=== PATIENT | male | born 1960 | race Caucasian/White ===

== ENCOUNTER 2018-08-08 10:26 | Outpatient (REF) | payer BC, SELFPAY ==
[2018-08-08 21:09] LABS: BUN 22 mg/dL (7-18); Calcium 9.2 mg/dL (8.5-10.1); Chloride 101 mmol/L (98-107); Glucose 102 mg/dL (70-100); Potassium 3.7 mmol/L (3.5-5.1); Sodium 138 mmol/L (136-145)
== END 2018-08-08 10:46 ==
LOC: NCHCN 10:26
PROVIDERS: PCP Physician Assistant; Visit Provider Physician Assistant Medical
DX: I10 Essential (primary) hypertension (principal)
CPT/HCPCS: 80048

== ENCOUNTER 2019-10-01 10:31 | Outpatient (REF) | payer BC, SELFPAY ==
[2019-10-01 19:52] LABS: Abs Immature Grans 0.01 k/cumm (0.0-0.09); Absolute Basophil Count 0.01 k/cumm (0.0-0.2); Absolute Eosinophil Count 0.08 k/cumm (0.0-0.7); Absolute Lymphocyte Count 1.87 k/cumm (1.2-3.4); Absolute Monocyte Count 0.57 k/cumm (0.11-0.7); Absolute Neutrophil Count 4.46 k/cumm (1.2-6.7); Basophils % 0.1; Eosinophils % 1.1; HCT 46.2 % (40.0-50.0); HGB 16.2 g/dL (13.5-17.5); Immature Grans % 0.1 %; Lymphocytes % 26.7; Mean Corp. HGB Concentration 35.1 g/dL (32.0-36.0); Mean Corpuscular Hemoglobin 31.8 pg (27.0-33.0); Mean Corpuscular Volume 90.6 fL (80-95); Mean Platelet Volume 10.6 fL (8.0-11.0); Monocytes % 8.1; Neutrophils % 63.9; Platelet Count 240 x1000/uL (130-400); RBC Distribution Width 13.7 % (11.8-14.1)
[2019-10-01 20:17] LABS: ALT 56 U/L (16-63); AST 31 U/L (15-37); Alkaline Phosphatase 80 U/L (46-116); Anion Gap 8.2 mmol/L (3-11); BUN 15 mg/dL (7-18); Bilirubin, Total 0.7 mg/dL (0.2-1.0); CO2 28.8 mmol/L (21.0-32.0); CREATININE 1.03 mg/dL (0.70-1.30); Calcium 8.9 mg/dL (8.5-10.1); Calculated LDL 120 mg/dL (<100); Chloride 104 mmol/L (98-107); Cholesterol 191 mg/dL (<200); Glucose 105 mg/dL (74-106); HDL Cholesterol 53 mg/dL (40-60); Potassium 4.5 mmol/L (3.5-5.1); Sodium 141 mmol/L (136-145); Total Protein 7.2 g/dL (6.4-8.2); Triglyceride 91 mg/dL (<150)
== END 2019-10-01 10:51 ==
LOC: NCHCN 10:31
PROVIDERS: PCP Physician Assistant; Visit Provider Physician Assistant
DX: Z00.00 Encounter for general adult medical examination without abnormal findings (principal); E78.5 Hyperlipidemia, unspecified; I10 Essential (primary) hypertension
CPT/HCPCS: 80053; 80061; 85025

== ENCOUNTER 2022-07-11 10:32 | Outpatient (CLI) | payer BC, SELFPAY ==
--- NOTE | 2022-07-11 09:30 | DI.RAD_ITS ---
Exam(s) XR HIP RT COMPLETE AP PELVIS EXAM: XR HIP RT COMPLETE AP PELVIS INDICATION: right hip pain. COMPARISON: No exams were available for comparison TECHNIQUE: 2D digital imaging was performed. Three views. FINDINGS: Severe narrowing of the right hip joint space with a [id number] appearance. Periarticular spurring and sclerosis. Mild degenerative changes noted in the left hip. SI joints and pubic symphysis unre markable. IMPRESSION: Advanced degenerative changes right hip. DATA REPOSITORY: RADIATION DOSE DELIVERED:
== END 2022-07-11 10:33 | disposition home or self-care (01) ==
LOC: DIORS 10:35
PROVIDERS: PCP Physician Assistant; Referring Provider Physician Assistant; Visit Provider Student in an Organized Health Care Education/Training Program
DX: M25.551 Pain in right hip (principal); M16.11 Unilateral primary osteoarthritis, right hip
CPT/HCPCS: 73502

== ENCOUNTER 2022-07-11 13:21 | Outpatient (CLI) | payer BC, SELFPAY ==
[2022-07-11 10:40] LABS: HCT 47.2 % (40.0-50.0); HGB 16.8 g/dL (13.5-17.5); MCH 31.9 pg (27.0-33.0); MCHC 35.6 % (32.0-36.0); MCV 90 fL (80-95); MPV 10.2 fL (8.0-11.0); Platelet Count 231 10^3/uL (130-400); RBC 5.27 10^6/uL (4.36-5.78); RDW 12.6 % (11.8-14.1); RDW-SD 41.6 fL; WBC 7.47 10^3/uL (4.4-10.8)
[2022-07-11 11:30] LABS: Anion Gap 9.6 mmol/L (3-11); BUN 17 mg/dL (7-18); CO2 27.4 mmol/L (21.0-32.0); Calcium 9.1 mg/dL (8.5-10.1); Chloride 103 mmol/L (98-107); Estimated GFR 85.63 (mL/min/1.73m2); Glucose 119 mg/dL (74-106); Potassium 3.9 mmol/L (3.5-5.1); Sodium 140 mmol/L (136-145)
== END 2022-07-11 13:22 | disposition home or self-care (01) ==
LOC: LBO 13:21
PROVIDERS: PCP Physician Assistant; Visit Provider Student in an Organized Health Care Education/Training Program
DX: M25.551 Pain in right hip (principal); M16.11 Unilateral primary osteoarthritis, right hip; Z01.818 Encounter for other preprocedural examination; Z01.812 Encounter for preprocedural laboratory examination
CPT/HCPCS: 36415; 80048; 85027

== ENCOUNTER 2022-07-19 05:55 | Day surgery (SDC) | payer BC, SELFPAY ==
[2022-07-19 06:33] VITALS: BP 132/96; PULSE 57; RESP 18; TEMP 36.5; O2SAT 98
[2022-07-19] MEDS: Celecoxib 200 MG CAP 400 MG PO (06:42)
[2022-07-19] MEDS: Acetaminophen 500 MG TAB 1000 MG PO (06:42)
[2022-07-19] MEDS: Lactated Ringers 1,000 ML 80 ML IV (07:00)
--- NOTE | 2022-07-19 07:08 | W.ANESPRE ---
General Info Date of Service Date Performed: 07/19/22 Height: 5 ft 9 in Weight: 96.6 kg Body Mass Index (BMI): 31.4 Surgical Procedure: Operation Date: 07/19/22 07:50 Proposed Procedure Side Surgeon p Hip Total Hip Anterior, ACTIS (09/21 High) Right Edgar Nicholson MD Pre-Op Diagnosis Post-Op Diagnosis Arthritis of right hip Meds Allergies and Home Medications Allergies Allergy/AdvReac Type Severity Reaction Status Date / Time No Known Allergies Allergy Verified 07/19/22 06:28 Home Medication Medication Instructions Recorded hydrochlorothiazide 12.5 mg capsule 12.5 mg PO HS 07/11/22 metoprolol succinate 50 mg 50 mg PO HS 07/11/22 tablet,extended release 24 hr multivitamin 1 tab PO DAILY 07/11/22 simvastatin 20 mg tablet 20 mg PO HS 07/11/22 acetaminophen 500 mg tablet 1,000 mg PO Q8H PRN pain #90 tabs 07/19/22 aspirin 81 mg tablet,delayed 81 mg PO BID 30 days #60 tabs 07/19/22 release celecoxib 200 mg capsule (Celebrex) 200 mg PO BID PRN #60 caps 07/19/22 dexamethasone 4 mg tablet 4 mg PO DAILY #2 tabs 07/19/22 docusate sodium 100 mg capsule 100 mg PO BID #30 caps 07/19/22 (Colace) oxycodone 5 mg tablet 5 mg PO Q6H PRN #12 tabs 07/19/22 pantoprazole 40 mg tablet,delayed 40 mg PO DAILY #14 tabs 07/19/22 release Current Visit Medications: Current Medications Generic Name Dose Route Start Last Admin Trade Name Yasmaniq PRN Reason Stop Dose Admin Acetaminophen 1,000 mg 07/19/22 06:00 07/19/22 06:42 Acetaminophen 500 Mg Tab PO 07/19/22 18:00 1,000 mg PREOP ZULEYKA Administration Celecoxib 400 mg 07/19/22 06:00 07/19/22 06:42 Celecoxib 200 Mg Cap PO 07/19/22 18:00 400 mg PREOP ZULEYKA Administration Tranexamic Acid 1,000 mg/ 60 mls @ 360 mls/hr 07/19/22 06:00 Sodium Chloride IV 07/19/22 18:00 PREOP ZULEYKA Ringer's Solution 1,000 mls @ 80 mls/hr 07/19/22 06:00 IV 08/17/22 23:59 INFUSION ZULEYKA Cefazolin Sodium/Dextrose 2 gm in 50 mls @ 100 mls/hr 07/19/22 06:00 Ancef Duplex IVPB 07/19/22 16:00 PREOP ZULEYKA IV Miscellaneous Supplies 1 each 07/19/22 06:00 Iv Access IV 08/17/22 23:59 DIRECTED ZULEYKA Sodium Chloride 0 ml 07/19/22 06:00 Normal Saline Flush 10 Ml Syr IV 08/17/22 23:59 PRN PRN Sodium Chloride 0 ml 07/19/22 06:00 Normal Saline 10 Ml Vial IJ 08/17/22 23:59 DIRECTED PRN Sterile Water 0 ml 07/19/22 06:00 Water,Injection,Sterile 10 Ml Vial IJ 08/17/22 23:59 DIRECTED PRN PFSH Active Problems Active Problems: Problem Status Onset Code Intermittent palpitations R00.2 Hyperlipidemia E78.5 Hypertension I10 Arthritis of right hip M16.11 Femoroacetabular impingement of left hip M25.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 Medical History Medical History (Updated 07/19/22 @ 06:33 by Savana Matthews) Hx of acute arthritis r hip Hx of essential hypertension Hx of hyperlipidemia Medical History Comments:: pt has had a colonoscopy Surgical History Surgical History (Updated 07/19/22 @ 06:31 by Savana Matthews) Hx of colonoscopy Tobacco Smoking/Tobacco Use Status: Former Tobacco Use Alcohol Alcohol Intake: current Alcohol intake frequency: 0-2 drinks per day Alcohol type: beer Substance Use Substance use: Never Substance use type: does not use Details: alcohol: t-1, couple beers Vital Signs and Lab Results Vital Signs Most Recent Vital Signs in EMR: Most Recent Vital Signs Temp Pulse Resp BP Pulse Ox 36.5 C 57 L 18 132/96 H 98 07/19/22 06:33 07/19/22 06:33 07/19/22 06:33 07/19/22 06:33 07/19/22 06:33 Lab Results Blood Type / Crossmatch: No Data to Display Complete Blood Count: White Blood Count 7.47 10^3/uL (4.4-10.8) 07/11/22 10:34 Red Blood Count 5.27 10^6/uL (4.36-5.78) 07/11/22 10:34 Hemoglobin 16.8 g/dL (13.5-17.5) 07/11/22 10:34 Hematocrit 47.2 % (40.0-50.0) 07/11/22 10:34 Platelet Count 231 10^3/uL (130-400) 07/11/22 10:34 Complete Metabolic Panel: Sodium 140 mmol/L (136-145) 07/11/22 10:34 Potassium 3.9 mmol/L (3.5-5.1) 07/11/22 10:34 Chloride 103 mmol/L (98-107) 07/11/22 10:34 Carbon Dioxide 27.4 mmol/L (21.0-32.0) 07/11/22 10:34 BUN 17 mg/dL (7-18) 07/11/22 10:34 Creatinine 1.0 mg/dL (0.70-1.30) 07/11/22 10:34 Est GFR (CKD-EPI 2020) 85.63 (mL/min/1.73m2) 07/11/22 10:34 Calcium 9.1 mg/dL (8.5-10.1) 07/11/22 10:34 Glucose 119 mg/dL (74-106) H 07/11/22 10:34 Liver Function Panel: No Data to Display Coagulation Panel: No Data to Display Cardiac Panel: No Data to Display Arterial Blood Gas: No Data to Display Venous Blood Gas: No Data to Display Pancreas Panel: No Data to Display Thyroid Panel: No Data to Display Infectious Disease: No Data to Display Blood Cultures: No Data to Display Toxicology Panel: No Data to Display Anesthesia Assessment and Plan Anesthesia History Personal History: No History of General Anesthesia Family History: No Family History of Anesthesia Complications Exercise Tolerance Exercise Tolerance: Metabolic Equivalents>4 Pertinent Negatives Pertinent Negatives: No Symptoms of GERD, No Major Cardiovascular Symptoms or Complaints, No Major Pulmonary Symptoms or Complaints and No History of CVA/TIA Cardiac & Pulmonary Exam Cardiac Exam: Normal S1/S2 Heart Sounds Pulmonary Exam: Clear Bilateral Breath Sounds Implantable Cardiac Device Does patient have a Pacemaker or an ICD?: No Airway Exam Known Difficult Airway: No Mallampati Class: 2 Mouth Opening: Normal (> 3cm) Thyromental Distance: Greater than 3 cm Facial Hair: Full Moore Neck Range of Motion: Full ROM Neck Circumference: Normal Teeth Condition: Normal Dentition ASA Classification ASA Score: ASA 2 Emergency Case?: No NPO Status NPO Status: NPO Clears >2 hours, Solids >8 hours Anesthesia Plan Resuscitation Status: Full Code Anesthesia Technique: Spinal Anesthesia Airway Planned: Natural Airway Monitors Used: Standard Monitors
[2022-07-19 07:10] VITALS: BMI 31.4
--- NOTE | 2022-07-19 07:11 | DSE_ITS ---
Date of service: 07/19/22 Time of Service: 07:20 DS: Diagnosis Discharge Diagnosis (1) Arthritis of right hip: Status: Acute Discharge Plan Disposition Patient Disposition: Home Condition: Good Discharge Details Reason For Visit: Right hip DJD Attending Provider: Edgar Nicholson Primary Care Provider: Codi Manley Home Meds and New Rx's Prescriptions: New acetaminophen 500 mg tablet 1,000 mg PO Q8H PRN Qty: 90 0RF Rx Instructions: Take two tablets up to every 8 hours as needed for pain aspirin 81 mg tablet,delayed release (DR/EC) 81 mg PO BID 30 Days Qty: 60 0RF celecoxib [Celebrex] 200 mg capsule 200 mg PO BID PRNQty: 60 0RF Rx Instructions: Take one tablet twice daily for pain and inflammation docusate sodium [Colace] 100 mg capsule 100 mg PO BID Qty: 30 0RF dexamethasone 4 mg tablet 4 mg PO DAILY Qty: 2 0RF Rx Instructions: Take one tablet once daily for two days oxycodone 5 mg tablet 5 mg PO Q6H PRNQty: 12 0RF Rx Instructions: Take one tablet up to every 6 hours as needed for severe postoperative pain pantoprazole 40 mg tablet,delayed release (DR/EC) 40 mg PO DAILY Qty: 14 0RF Continued simvastatin 20 mg tablet 20 mg PO HS multivitamin Tablet 1 tab PO DAILY metoprolol succinate 50 mg tablet extended release 24 hr 50 mg PO HS hydrochlorothiazide 12.5 mg capsule 12.5 mg PO HS Discontinued aspirin 325 mg tablet 325 mg PO DAILY Discharge Instructions Additional Instructions: Total Hip Discharge Instructions Activity: The most important activity is to walk. You should try to take short walks a few times a day. You have no restrictions on movement or positioning, but do not try to force what you do. You will find some stiffness and weakness with hip flexion (lifting your knee). Do not try to strengthen this too early, continue to practice walking and stairs and this will come. - Outpatient physical therapy can be helpful to help return you to a normal gait and improve your flexibility and strength. This can start around 2 weeks. For some patients, it?s not necessary. Usually this is determined at the time of discharge or at the first post-operative visit. - You should wear the MACHO hose on both legs for 2 weeks. Dressing: Keep the surgical dressing in place for at least one week. After the first week it may be removed and replace with light gauze and tape or nothing. It may get wet after 3 days but avoid soaking the dressing. If it gets wet, just lightly pat dry. It is important to always keep some gauze between skin folds, especially when you are sitting. Spend some time with the wound exposed when you are lying flat as the incision does wrinkle onto itself. Medications: - You should take Tylenol and an anti-inflammatory Celebrex as your primary pain control medications. If the Celebrex is too expensive or not covered, please call the office for another alternative (Advil/Ibuprofen or Naproxen/Aleve). - You have been prescribed a stronger pain medication Oxycodone for breakthrough pain, take as needed as prescribed. - You have also been prescribed a stomach acid reduction agent Pantoprozole to help reduce stomach acid and reflux. - You have also been prescribed Decadron to help with post-operative nausea and pain. You will take this for two days starting tomorrow. - You will be taking Aspirin 81mg twice a day for DVT prevention unless instructed otherwise. - If you have constipation you should take Colace (which has been prescribed) or Miralax (which has been prescribed [id number]). It takes most people 3-4 days to have a bowel movement. Follow-up: 2 weeks If you have any acute concerns or questions, please do not hesitate to contact the office at [phone]. You may contact Dr. Nicholson with any questions after hours through the hospital at [phone] or on his cell phone at [phone]. Referrals: Edgar Nicholson MD [ [facility] STAFF PHYSICIAN] - Equipment/Supplies: Walker Activity:: Elevate Remove Dressings/Wound Care:: Do Not Remove Shower/Bathe:: Cover Diet:: As Tolerated Discharge Orders Discharge Orders: Discharge Order (Routine); Ordered 07/19/22 Ordered By: Edgar Nicholson DS: Summary Time Spent with Patient providing and/or coordinating discharge services: Less than 30 minutes Status at Discharge Functional status at discharge: uses cane/walker Overall status at discharge: patient is progressing back to baseline Mental Status: mental status grossly normal Speech and Movement: speech and movement normal Mood: congruent mood Affect: normal affect Exam Psych Mental Status: mental status grossly normal Speech and Movement: speech and movement normal Mood: congruent mood Affect: normal affect DS: Data Vitals/I&O Vitals and I&O: Vital Signs Temperature 97.7 F 07/19/22 06:33 Pulse 57 L 07/19/22 06:33 Pulse Rhythm Regular 07/19/22 06:33 Respiratory Rate 18 07/19/22 06:33 Respiratory Depth Normal 07/19/22 06:33 Blood Pressure 132/96 H 07/19/22 06:33 Pulse Oximetry 98 07/19/22 06:33 Oxygen Delivery Method Room Air 07/19/22 06:33 Oxygen Flow Rate 0 07/19/22 06:33 Pain Level 2 07/19/22 06:33 Intake & Output 07/18/22 07/18/22 07/19/22 11:59 23:59 11:59 Weight 210 lb 212 lb 15.465 oz PFSH All Active Problems (Updated 07/19/22 @ 06:33 by Savana Matthews) Intermittent palpitations (Acute) Hyperlipidemia (Acute) Hypertension (Chronic) Arthritis of right hip (Acute) Femoroacetabular impingement of left hip (Acute) Medical History (Updated 07/19/22 @ 06:33 by Savana Matthews) Hx of acute arthritis r hip Hx of essential hypertension Hx of hyperlipidemia Surgical History (Updated 07/19/22 @ 06:31 by Savana Matthews) Hx of colonoscopy Social History Smoking/Tobacco Use Status: Former Tobacco Use Quit Date: 04/17/12 Smoking risk assessment performed?: Yes Alcohol Intake: current Alcohol Intake frequency: 0-2 drinks per day Alcohol type: beer Drug use: Never Substance use type: does not use Details: alcohol: t-1, couple beers Do you feel safe at home: Yes Do you feel safe in your relationship?: Yes Additional Social history: unable to assess privately Time Spent with Patient Time Spent with Patient: <45 minutes Time was spent: obtaining and/or reviewing separately otained hiistory, ordering medications,tests, procedures and counseling the patient
[2022-07-19] MEDS: ceFAZolin 2 GM/50 ML BAG IVPB (07:34)
--- NOTE | 2022-07-19 08:42 | DI.RAD_ITS ---
Exam(s) XR HIP RT IN OR EXAM: XR HIP RT IN OR CLINICAL HISTORY: Arthritis of right hip. TECHNIQUE: 2D and realtime digital imaging was performed. COMPARISON: CR XR HIP RT COMPLETE AP PELVIS from 07/11/2022 FINDINGS: Images show placement of a right hip prosthesis. The alignment appears satisfactory. Please see procedure note for details. Fluoro time: 41.2seconds RADIATION DOSE DELIVERED: Ka,r=6.36 mGy
[2022-07-19 09:10] VITALS: BP 114/78; PULSE 53; RESP 16; TEMP 36.3; O2SAT 97
[2022-07-19 09:50] VITALS: BP 147/91; PULSE 55; RESP 16; TEMP 36.4; O2SAT 99
[2022-07-19 10:22] VITALS: BP 130/83; PULSE 67; RESP 16; TEMP 36.6; O2SAT 98
[2022-07-19 11:16] VITALS: BP 132/94; PULSE 64; RESP 18; TEMP 36.2; O2SAT 99
--- NOTE | 2022-07-19 11:23 | W.ANESPOSTOP ---
Postoperative Evaluation Date, Time and Location Date Performed: 07/19/22 Time Performed: 10:18 Patient Location: Day Surgery Unit Vital Signs Most Recent Imported Vital Signs: Most Recent Vital Signs Temp Pulse Resp BP Pulse Ox 36.6 C 67 16 130/83 98 07/19/22 10:22 07/19/22 10:22 07/19/22 10:22 07/19/22 10:22 07/19/22 10:22 Pain Score Most Recent Pain Score: Most Recent Pain Score Pain Level 5 07/19/22 10:22 Assessment Mental Status: Awake (Alert & Oriented to Patient Baseline) Airway and Respiratory Function: Patent airway with normal (patient baseline) respiratory exam Cardiovascular Function: Hemodynamically Stable Hydration Status: Adequately Hydrated Nausea & Vomiting: No Nausea or Vomiting Pain: Pain is tolerable per patient Peripheral Nerve Block: Patient did not receive a nerve block
--- NOTE | 2022-07-19 16:31 | W.PM.OP ---
Date of service: 07/19/22 Time of Service: 08:50 Operative Note Operative Note DATE OF PROCEDURE: 07/19/22 PRE-OP DIAGNOSIS: Right Hip Osteoarthritis POST-OP DIAGNOSIS: same PROCEDURE: Right Anterior Total Hip Arthroplasty with Intraoperative Navigation SURGEON: Edgar Nicholson CLOTH BOIL OFF MACHINE OPERATOR: uJly Kim ANESTHESIA TYPE: Spinal Refer to Anesthesia Record ESTIMATED BLOOD LOSS: 100 PATHOLOGY: none sent TOURNIQUET TIME: 0 COMPLICATIONS: None Patient was transported to: PACU Patient's condition: stable Implants: 1. Depuy [place] Acetabular Component, 58mm 2. Depuy Acetabular Liner, 14m39mn 3. Depuy Actis Standard Collared Femoral Stem, Size 6 4. Depuy Altrx Ceramic Femoral Head, Size 36+8.5mm Indications: I have seen Vasyl in clinic for symptoms of hip arthritis, confirmed with radiographic findings. He has exhausted nonoperative methods and was having significant limitations in daily function and desired better function and less pain. I discussed the technical details of a hip replacement. I explained the risks of the procedure to include, but not limited to, bleeding, infection, pain, stiffness, fracture, damage to nerves and vessels, damage to muscles and tendons, loosening, instability, leg length inequality, need for repeat procedure, blood clot and cardiopulmonary demise. Despite these risks, Vasyl elected to proceed. Findings: There was significant signs of arthritis throughout the hip with synovitis throughout. Procedure Description: Vasyl was greeted in the preoperative holding area where the correct side was identified and marked. The consent was reviewed with the patient and signed. The history and physical was updated. All questions were answered. He was taken back to the operating room. A spinal anesthestic was then administered. The feet were wrapped with cast padding and Coban and then placed into the boot liners and then into the boots. Care was taken to protect the skin and make sure the heels were fully down and the boots were stable. The patient was then positioned onto the HANA table. Both legs were held in a neutral position. SCDs were applied. The patient was then slid down onto a peroneal post. Prophylactic antibiotics in the form of Cefazolin were administered. 1g of Tranxemic Acid was given intravenously within 30 minutes of incision. The right leg was then prepped with Chloraprep and draped in a standard fashion. A second prep with Chloraprep was performed prior to placement of a shower-curtain type drape with Iodine impregnated skin protection. A timeout to confirm correct identity, side and site, procedure, allergies, anesthesia, and medical concerns was performed. An obliquely oriented incision was made starting lateral to the ASIS and running distal over the Tensor Fascia Fawn (TFL) muscle belly toward the fibular head, approximately 10cm. The skin and soft tissue was dissected sharply, through Neil?s fascia, and to the fascia of the TFL. With the fascia and superior border of the IT band identified, the fascia was incised with a new knife just above any perforators from the IT band. The TFL muscle belly was bluntly dissected away from the fascia and moved laterally. The fat between TFL and rectus was identified to ensure the dissection was not within the TFL. Blunt dissection created space between abductors and the capsule and retractor was placed over the lateral femoral neck. The fibers of the rectus femoris tendon were identified and these were freed from the anterior capsule. A second cobra retractor was placed around the medial femoral neck. The TFL was further retracted laterally to show the deep fascia. Careful dissection through this layer identified three main crossing vessels of the lateral femoral circumflex. These were cauterized in multiple locations and then cut without any noticeable bleeding. The TFL was further released bluntly from the deep fascia to expose anterior hip capsule and fat The Nicko orthopaedic retractor was then placed beneath the TFL and against sartorius and medial soft tissues to protect and retract the soft tissues. A T-capsulotomy was then performed starting at the superior lateral acetabulum and moving distally to the intertrochanteric ridge. These capsular flaps were tagged with a No. 1 Ethibond and elevated from within. The capsular flaps were released to the shoulder of the lateral neck and to the lesser trochanter to give excellent visualization of the proximal femur. A neck osteotomy was performed using an oscillating saw based on preoperative templates. This cut started in the shoulder and of the lateral neck and exited medially. The saw was at all times directed medially to avoid injury to the greater trochanter. Gross traction was applied to the leg and the osteotomy opened. The femoral head was removed with a corkscrew, making sure to protect the TFL on its exit. Traction was released after head removal. This was measured on the back table to determine the starting reamer size. Portions of the rectus obscuring visualization were minimally elevated off the superior acetabulum. An anterior retractor was placed over the anterior wall between capsule and labrum and attached to the Gripper retraction system. The femur was rotated to 90 degrees and medial capsule was fully released until the lesser trochanter was palpable and visible; the femur was returned to 30 degrees. A posterior retractor was placed similarly between capsule and labrum. This provided excellent visualization. The contents of the cotyloid fossa were removed with electrocautery and the labrum was removed with a knife. There was a notable floor osteophyte. There was significant chondromalacia of the superior acetabulum. Synovitis was seen throughout the hip which was excised with a rongeur and sharply. Acetabular reaming began with a 54mm reamer. This first reaming was directed anterior to posterior and medial to get down to the true floor. This was inspected and reamed until the true floor was reached. The anterior retractor was then released and entry and exit was provided by traction on the capsular flaps. I then reamed sequentially up to a 58mm reamer where good fit was obtained. The larger reamers were oriented based on anatomical reference of the anterior and lateral conte to ensure proper abduction and anteversion. Positioning and size was confirmed with the fluoroscopy. A 58mm Depuy [place] acetabular component was selected. The acetabulum was reamed around the periphery with the selected acetabular size to prevent a rim fit. The deep tissues were irrigated. The acetabular component was then impacted in a position of about 40-45 degrees of abduction and 15-20 degrees of anteversion, using the patient?s anatomy as the ultimate landmark. Fluoroscopy was used to confirm this. There was excellent financial reporting consultant of the acetabular component and the inserting handle was removed. The acetabular liner, Depuy [id number] polyethylene liner, was inserted and lined up with the tines of the acetabular component. There was no soft tissue interposition. The liner was then impacted into position and confirmed to be well-seated. A portion of the dayana-articular cocktail was then injected around the acetabulum into the capsule and periosteum. This cocktail consisted of 123mg of Ropivacaine, 0.25mg of Epinephrine, 0.04mg of Clonidine, and 15mg of Ketorolac, diluted to 50cc. The leg was rotated to 120 degrees. Any remaining medial capsule was released until the lesser trochanter was easily palpable. A retractor was placed medially. The lateral capsule was further released into the shoulder to allow access to the greater trochanter. A Lan retractor was placed over the greater trochanter which allowed the trochanter to flip in front of the capsule for excellent exposure. The leg was brought down into maximal extension and 20 degrees of adduction while ensuring there was no impingement on the acetabulum. Any remnant capsule within the trochanter was released. Piriformis and obturator externis were identified and protected. There was excellent access to the proximal femur. The lateral neck remnant was removed with a rongeur. A blunt canal probe was used to identify the canal and trajectory for later broaching. A box osteotome initiated the broach course. A small curved rasp and a curved curette were used to work laterally. Broaching then began with a starter Actis broach. This was inserted manually around the trochanter and into the canal before mallet blows. The broach was seated to a few millimeters below the cut level based on the neck cut and the preoperative template. Sequential broaching was continued with the Carbonitese pneumatic broaching device until a tight fit was obtained with good rotational control of the femur. A trial high offset neck was inserted along with a +1.5 trial head. The leg was brought out of extension and adduction and then reduced with traction and internal rotation. The leg was stable anteriorly in a position of 30 degrees of extension and 90 degrees of external rotation. Fluoroscopy was used to ensure there was no fracture and the stem was seated well. Leg lengths were checked with an AP pelvis and pelvic reference points. Filement navigation system was used to confirm appropriate positioning and leg length and offset. This slightly over-corrected the offset and undercorrected the leg length. Thus, going to a standard neck with a +8.5mm head and advancing the stem 3mm would be more accurate. Once content with the desired offset and leg lengths, the leg was brought back into extension, external rotation and adduction. The periosteum and surrounding tissue was injected with remaining portion of the dayana-articular cocktail. The proximal femur was irrigated as well as the deep tissues. The kingskyuy TakeLessonsis standard collared stem, size 6, was then manually inserted into the proximal femur making sure to control rotation. It was then malleted into position with light blows, giving breaks to allow bone expansion and decrease risk of fracture. The selected Depuy Altrx Ceramic Head, size 36+8.5mm, was then placed onto the clean and dry trunnion and secured with impaction onto the tapered fit. The leg was brought back out of extension and adduction and reduced with traction and internal rotation. Stability was confirmed with no shuck at 90 degrees of external rotation and 30 degrees of extension. No impingement through range of motion arc. Final x-ray images were obtained with fluoroscopy to confirm adequate positioning and no intraoperative fracture. The deep tissues were thoroughly irrigated with Surgiphor, betadine solution. This was allowed to sit in the wound for 3 minutes before being thoroughly irrigated out with normal saline. The capsule was then reapproximated with the previously placed Ethibond sutures. The TFL fascia was finally closed with a No. 2 Stratafix, barbed suture. Deep tissues were then reapproximated with 0 Vicryl and a running 2-0 Vicryl. The skin was closed with a running 4-0 Monocryl in a subcuticular fashion. This was reinforced with skin glue. A Mepilex silver dressing was applied. At the end of the case, all counts were correct. Vasyl was transferred to the hospital bed without difficulty and suffering no apparent complication. Vasyl has a good prognosis. Physical therapy will start today and without restrictions, weight-bearing as tolerated. Aspirin 81mg BID will be used for DVT prophylaxis.
--- NOTE | 2022-07-19 18:00 | IN_ITS ---
Date of service: 07/19/22 Time of Service: 12:46 PT Notes Visit Reasons: Right hip DJD Physical Therapy Day Surgery Initial Evaluation Date: 07/19/2022 Referring Doctor: CARRIE Patricio PT Orders: PT CONSULT: Eval/Treat Precautions: WBAT on right LE with AD. 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 PMHX: All Active Problems?(Updated 07/12/22 @ 06:00 by Edgar Nicholson MD) Femoroacetabular impingement of left hip (Acute) Arthritis of right hip (Acute) Hypertension (Chronic) Hyperlipidemia (Acute) Intermittent palpitations (Acute) Social History/Home Situation: Lives with in a private home with 4 steps to enter. Independent with all aspects of ADL prior to surgery however with increasing difficulty of activity performance due to pain in R hip. Equipment Owned/DME: None Subjective: Denies headache, chest pain, and lighthededness throughout session. Objective: General Observation: Supine in bed. Mepilex Ag over surgical incision. TEDs to B legs. Mental Status: Alert and oriented x4 Pain: 1/10 in the R hip ROM: Right Lower Extremity: Hip flexion WFL. Hip abduction WFL. Knee flexion WFL. Ankle dorsiflexion WFL. Ankle plantarflexion WFL. Left Lower Extremity: Hip flexion WFL. Hip abduction WFL. Knee flexion WFL. Ankle dorsiflexion WFL. Ankle plantarflexion WFL. Strength: Right Lower Extremity: Hip flexors 4/5. Hip abductors 4/5. Knee flexors 5/5. Knee extensors 4/5. Ankle dorsiflexors 5/5. Ankle plantarflexors 5/5. Left Lower Extremity:Hip flexors 5/5. Hip abductors 5/5. Knee flexors 5/5. Knee extensors 5/5. Ankle dorsiflexors 5/5. Ankle plantarflexors 5/5. Sensation: Intact as to pain and light pressure in bilateral lower extremities Bed Mobility/Transfers: Supine to sit stand by assist Sit to stand stand by assist Stand to sit stand by assist Bed to chair stand by assist Gait: 150 feet level surface ambulation using front wheeled walker with step through gait pattern requiring only standby assist. Stairs: Up and down 6 x 4 inch steps and 4 x 6 inch steps holding onto bilateral rails with step to gait pattern requiring only standby assist with no report of increased pain in the right hip. Balance: Static Sitting: Normal Dynamic Sitting: Normal Static Standing: Fair Dynamic Standing: Fair Special Tests: Mobility Limitations Standardized Measure [facility] AM-PAC 6 clicks Basic Mobility Inpatient Short Form: Raw Score: 24 CMS Score: 0 Informed Consent/Education: Patient instructed in purpose of PT consult. Packet containing POLY exercise protocol has been given to patient. Education and training on initial set of exercises that can be done at home have been completed with patient. THERA EX: Supine gluteal sets x5 Supine heel slides x5 Supine ankle pumps x10 Seated marches x5 LAQ x5 patient requires the use of a front wheeled walker for all mobility ADL performance prior to maximize independence and reduce fall risk. Assessment: Patient presents with clinical signs and symptoms consistent with current/admitting diagnoses that have resulted to mobility limitations, gait instability, generalized weakness, and impairment of motor control as demonstrated by the following impairment level findings: 1. Decreased strength to R hip muscle groups 2. Impaired standing balance 3. Limitation of joint range of motion in R hip Impairments are contributing to the following functional limitations: 1. Inability to safely ambulate without assistive device 2. Increase completion time for mobility ADL performance 3. Increased fall risk Patient is assessed as a 76896 moderate complexity based on the following: History: 61-year-old female with impairment level findings, functional limitations, and past medical history as indicated above Examination: Demonstrable impairment in strength, balance, and mobility level with underlying impairments and functional limitations as documented above Presentation: Evolving Decision Makin moderate complexity Goals: N/A. PT evaluation and 1-2 treatment sessions only for functional mobility training using recommended AD and for HEP instruction. Plan of Care/Treatment Plan: N/A. PT evaluation and 1-2 treatment session only for functional mobility training using recommended AD and for HEP instruction. DISCHARGE RECOMMENDATIONS: Home when medically cleared by orthopedic surgeon. Recommend outpatient PT services in order to optimize functional mobility outcomes and facilitate return to independent community ambulation without an assistive device. TREATMENT CODE/TIME: 40517 x 20 minutes, 93917 x 10 minutes beginning at 10:45 AM. Thank you for the opportunity to participate in the care of this patient. Jenn Llamas PT, DPT, CLT [facility] [place], [place]
== END 2022-07-19 11:53 | disposition home or self-care (01) ==
PROVIDERS: PCP Physician Assistant; Visit Provider Student in an Organized Health Care Education/Training Program
PROC: (CPT 27130; principal; 2022-07-19 07:30)
DX: M16.11 Unilateral primary osteoarthritis, right hip (principal); I10 Essential (primary) hypertension; E78.5 Hyperlipidemia, unspecified
CPT/HCPCS: 27130; 20985; 97162; 97530; 73501; J0690; J1100; J2250; J2405

== ENCOUNTER 2022-08-01 11:14 | Outpatient (CLI) | payer BC, SELFPAY ==
--- NOTE | 2022-08-01 10:30 | DI.RAD_ITS ---
Exam(s) XR HIP RT COMPLETE AP PELVIS EXAM: XR HIP RT COMPLETE AP PELVIS CLINICAL HISTORY: 1st post op R POLY. TECHNIQUE: 2D digital imaging was performed. COMPARISON: CR XR HIP RT COMPLETE AP PELVIS from 07/11/2022 XA XR HIP RT IN OR from 07/19/2022 FINDINGS: Two views: Satisfactory position alignment of the components of the recently placed right hip prosthesis. No fr acture or loosening evident. IMPRESSION: Satisfactory appearance. DATA REPOSITORY: RADIATION DOSE DELIVERED:
== END 2022-08-01 11:15 | disposition home or self-care (01) ==
LOC: DIORS 11:14
PROVIDERS: PCP Physician Assistant; Visit Provider Student in an Organized Health Care Education/Training Program
DX: Z96.641 Presence of right artificial hip joint (principal); Z47.1 Aftercare following joint replacement surgery
CPT/HCPCS: 73502

== ENCOUNTER 2022-11-10 19:01 | Outpatient (REF) | payer BC, SELFPAY ==
[2022-11-10 18:56] LABS: ALT 48 U/L (16-63); AST 35 U/L (15-37); Alkaline Phosphatase 88 U/L (46-116); Bilirubin, Direct 0.2 mg/dL (0.0-0.2); Bilirubin, Total 0.7 mg/dL (0.2-1.0); Total Protein 7.6 g/dL (6.4-8.2)
[2022-11-10 19:11] LABS: Hemoglobin A1C 5.5 % (<5.7)
== END 2022-11-10 19:02 | disposition home or self-care (01) ==
LOC: NCHCN 19:01
PROVIDERS: PCP Physician Assistant; Visit Provider Physician Assistant
DX: Z00.00 Encounter for general adult medical examination without abnormal findings (principal); E78.5 Hyperlipidemia, unspecified; I10 Essential (primary) hypertension
CPT/HCPCS: 80076; 83036

== ENCOUNTER 2023-08-07 10:47 | Outpatient (CLI) | payer BC, SELFPAY ==
--- NOTE | 2023-08-07 10:15 | DI.RAD_ITS ---
Exam(s) XR HIP RT AP LAT ONLY EXAM: XR HIP RT AP LAT ONLY CLINICAL HISTORY: ANNUAL F/U R POLY. TECHNIQUE: 2D digital imaging was performed. Two images were obtained. AP pelvis and lateral hip vi ews were obtained. COMPARISON: CR XR HIP RT COMPLETE AP PELVIS from 08/01/2022 FINDINGS: BONES: There are stable post operative changes of a right total hip replacement present. No fracture or dislocation. JOINTS: The orthopedic hardware is in good position. No evidence of hardware loosening. SOFT TISSUE: Surgical clips are again seen inferior to the pelvis which may reflect prior vasectomy. Vascular calcifications are present. IMPRESSION: Stable right total hip replacement. DATA REPOSITORY: RADIATION DOSE DELIVERED:
== END 2023-08-07 10:48 | disposition home or self-care (01) ==
LOC: DIORS 10:47
PROVIDERS: PCP Physician Assistant; Referring Provider Physician Assistant; Visit Provider Student in an Organized Health Care Education/Training Program
DX: Z96.641 Presence of right artificial hip joint (principal); Z47.1 Aftercare following joint replacement surgery
CPT/HCPCS: 73502

== ENCOUNTER 2023-12-19 15:36 | Outpatient (REF) | payer BC, SELFPAY ==
[2023-12-19 20:01] LABS: ALT 46 U/L (16-63); AST 37 U/L (15-37); Albumin 3.8 g/dL (3.4-5.0); Alkaline Phosphatase 71 U/L (46-116); BUN 19 mg/dL (7-18); Bilirubin, Total 0.79 mg/dL (0.2-1.0); CREATININE 0.9 mg/dL (0.70-1.30); Calcium 8.8 mg/dL (8.5-10.1); Calculated LDL 108 mg/dL (<100); Chloride 105 mmol/L (98-107); Cholesterol 183 mg/dL (<200); Estimated GFR 96.57 (mL/min/1.73m2); Glucose 106 mg/dL (74-106); HDL Cholesterol 63 mg/dL (40-60); Sodium 140 mmol/L (136-145); Total Protein 7.5 g/dL (6.4-8.2); Triglyceride 60 mg/dL (<150)
[2023-12-19 20:12] LABS: Hemoglobin A1C 5.4 % (<5.7)
[2023-12-20 18:10] LABS: PSA, Screening 0.8 ng/mL (<=4.5)
[2023-12-21 09:34] LABS: HIV-1/2 Ag & Ab Screen Negative (Negative)
[2023-12-21 09:46] LABS: Hepatitis C Ab w Rflx HCV PCR Negative (Negative)
== END 2023-12-19 15:37 | disposition home or self-care (01) ==
LOC: NCHCN 15:36
PROVIDERS: PCP Physician Assistant; Visit Provider Physician Assistant
DX: Z11.4 Encounter for screening for human immunodeficiency virus [HIV] (principal); Z11.59 Encounter for screening for other viral diseases; E78.5 Hyperlipidemia, unspecified; Z13.1 Encounter for screening for diabetes mellitus; Z12.5 Encounter for screening for malignant neoplasm of prostate
CPT/HCPCS: 80053; 80061; 84153; 86803; 87389; 83036